=== PATIENT | female | born 1950 | race Two or more races ===

== ENCOUNTER 2024-07-25 10:30 | Emergency (ER) | payer OTHER ==
[~2024-07-25] VITALS: Ht 165.1 cm; Wt 83.9 kg
[2024-07-25 11:13] VITALS: BP 172/80; O2SAT 99
[2024-07-25] MEDS ORDERED: SYNTHROID112 MCG PO (11:14)
[2024-07-25] MEDS ORDERED: LOSARTAN POTASS50 MG PO (11:14)
[2024-07-25 12:30] LABS: HEMATOCRIT 38.4 % (36.0-45.00); HEMOGLOBIN 12.8 g/dL (12.0-15.00); MEAN CELL VOLUME 89.8 fL (80.00-100.00); MEAN CORPUSCULAR HGB CONC 33.4 g/dl (32.0-36.0); PLATELET COUNT 323 K/uL (150-450); RED BLOOD COUNT 4.27 M/uL (4.00-6.00); RED CELL DISTRIBUTION WIDTH 14.2 % (11.5-14.5)
[2024-07-25 12:57] LABS: CALCIUM 10.1 mg/dL (8.5-10.1); CREATININE SERUM 0.91 mg/dL (0.55-1.02); GFR 60.43; POTASSIUM 4.22 mEq/L (3.5-5.1)
== END 2024-07-25 16:35 | disposition home or self-care (01) ==
LOC: ER 10:32
PROVIDERS: General Practice
DX: K62.5 Hemorrhage of anus and rectum (principal); Z88.8 Allergy status to other drugs, medicaments and biological substances
CPT/HCPCS: 36415; 74177; 99284; Q9965